=== PATIENT | female | born 1970 | race Caucasian/White ===

== ENCOUNTER 2020-03-14 19:43 | Emergency (ER) | payer MEDICAID, OTHER ==
[~2020-03-14] VITALS: Ht 162.6 cm; Wt 63.5 kg
--- NOTE | 2020-03-14 19:55 | NUR ---
PT TAKEN TO BED 12
[2020-03-14 19:57] VITALS: BP 146/81
--- NOTE | 2020-03-14 20:10 | NUR ---
49 Y/O FEMALE PRESENTS TO ER WITH C/O ABDOMINAL PAIN, AND DISTENTION X 1 DAY. 5/10 EPIGASTRIC PAIN, AND RIGHT FLANK PAIN. 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 PT STATES "FEELS LIKE I'M RETAINING FLUID IN MY STOMACH WHEN IT SWELLS, AND FEELS LIKE HOT BURNING INSIDE MY STOMACH". LAST MEAL 1500 "PASTA AND LETTUCE". ABDOMEN IS VISIBLY DISTENDED, ROUND, AND HARD. NOT TTP. LBM TODAY AT 1900. TOOK IBU 400MG X 3 HRS AGO. PT ALSO C/O NAUSEA, SOB W/ABDOMINAL DISTENTION. DENIES V/D, COUGH, FEVER, CHILLS. VSS. SIDE RAIL X1, BED IN LOW POSITION, WILL CONTINUE TO MONITOR. ALLERGY: PENICILLIN PMH: STAGE II CERVICAL CANCER
--- NOTE | 2020-03-14 21:13 | NUR ---
PT RESTING IN BED QUIETLY. "I FEEL OK, I'M OK". R/R EQUAL, AND UNLABORED. NO DISTRESS NOTED, VSS. SIDE RAIL X1, BED IN LOW POSITION WILL CONTINUE TO MONITOR.
[2020-03-14 22:00] LABS: BASOPHILS % (AUTO) 0.7 % (0.0-2.0); EOSINOPHILS # (AUTO) 0.1 K/uL (0-0.4); EOSINOPHILS % (AUTO) 2.5 % (0.0-4.0); HEMATOCRIT 27.1 % (36-48); HEMOGLOBIN 9.3 g/dL (12.0-16.0); LYMPHOCYTES # (AUTO) 0.5 K/uL (2.5-16.5); LYMPHOCYTES % (AUTO) 9.5 % (20.5-51.1); MEAN CORPUSCULAR HEMOGLOBIN 29 pg (27-31); MEAN CORPUSCULAR HGB CONC 34 g/dL (33-37); MEAN CORPUSCULAR VOLUME 84.3 fL (80-94); MONOCYTES # (AUTO) 0.3 K/uL (0.8-1.0); MONOCYTES % (AUTO) 5.4 % (1.7-9.3); NEUTROPHILS # (AUTO) 4.3 K/uL (1.8-7.7); NEUTROPHILS % (AUTO) 81.9 % (42.2-75.2); PLATELET COUNT (AUTO) 436 K/uL (140-450); RED BLOOD CELL COUNT(AUTO) 3.21 MIL/uL (4.20-5.40); RED CELL DISTRIBUTION WIDTH 14.1 % (11.6-13.7); WHITE BLOOD COUNT (AUTO) 5.2 K/uL (4.8-10.8)
[2020-03-14 22:17] LABS: ALBUMIN 2.5 g/dL (3.4-5.0); ANION GAP 9.4 (8-16); CARBON DIOXIDE 30.2 mmol/L (21-32); CREATININE 1.4 mg/dL (0.6-1.3); POTASSIUM 3.6 mmol/L (3.5-5.1); TOTAL BILIRUBIN 0.3 mg/dL (0.0-1.0)
[2020-03-14 22:27] LABS: PROTHROMBIN TIME 10.3 secs (10.8-13.4)
--- NOTE | 2020-03-14 22:27 | NUR ---
PT RESTING IN BED QUIETLY, WITH EYES CLOSED. R/R EQUAL, AND UNLABORED. NO DISTRESS NOTED, VSS. SIDE RAIL X1, BED IN LOW POSITION WILL CONTINUE TO MONITOR.
--- NOTE | 2020-03-14 23:22 | NUR ---
PT RESTING IN BED QUIETLY. REQUESTED AND PLACED IN HIGH FOWLERS POSITION FOR COMFORT. R/R EQUAL, AND UNLABORED. NO DISTRESS NOTED, VSS. SIDE RAIL X1, BED IN LOW POSITION WILL CONTINUE TO MONITOR.
--- NOTE | 2020-03-15 00:53 | NUR ---
Patient discharged with v/s stable. Written and verbal after care instructions given and explained. Patient verbalized understanding. Ambulatory with steady gait. All questions addressed prior to discharge. Advised to follow up with PMD.
[2020-03-15 01:03] VITALS: BP 117/75
== END 2020-03-15 00:53 | disposition home or self-care (01) ==
LOC: MED 19:43
DX: C53.9 Malignant neoplasm of cervix uteri, unspecified (principal); R18.0 Malignant ascites
CPT/HCPCS: 36415; 80053; 81002; 81025; 82140; 85025; 85610; 85730; 99284